=== PATIENT | female | born 1965 | race Asian ===

== ENCOUNTER 2016-09-09 22:09 | Emergency (ER) | payer OTHER ==
--- NOTE | ~2016-09-09 | HP ---
History And Physical [address] [place]. [address] NAME: SAM KEITA : 61 STATUS : ADM Jewel PAT#: [id number] AGE: 51 ADM/REG DATE : 09/09/16 MR#: [id number] REPORT SERV DATE: 09/10/16 DICTATED BY: LUIS BOWENS DATE: 09/10/16 REPORT STATUS : Draft TRANSCRIBED BY: MODL DATE: 09/10/16 DATE OF ADMISSION: 09/09/2016 REASON FOR ADMISSION: NSTEMI. HISTORY OF PRESENT ILLNESS: Ms. Keita is a very pleasant, 51-year-old, female with no past medical history, significant family history for heart disease (sister at 40 years of age with arrhythmia, nephew with arrhythmia, mother and father both with nonspecified heart disease) who presents to [facility] with complaints of left-sided chest discomfort that started yesterday. She states that she had been in her usual state of health up until yesterday morning when she awoke with left-sided chest pressures and discomfort. She ignored this through the morning, however, her symptoms became worse later in the day. They became associated with faintness as well as shortness of breath by late afternoon, prompting her to tell her that she needs to go get evaluated. They live in a community that has a physician health information clerk on Sundays, who they saw. Cardiac enzymes were checked by that physician which came back elevated. At that point in time, she was advised to come to [facility] ER for further evaluation and care. She was admitted for NSTEMI given a troponin of 0.17. ALLERGIES: NO KNOWN DRUG ALLERGIES. PAST MEDICAL HISTORY: None. FAMILY HISTORY: Significant for heart disease as detailed above. SOCIAL HISTORY: The [facility] with her . She functions independently under normal circumstances. She does not have any drug history, and denies smoking or drinking alcohol. REVIEW OF SYSTEMS: As above, all other systems otherwise negative. PHYSICAL EXAMINATION: VITAL SIGNS: Stable and within normal range, sinus bradycardia with a heart rate of 50s to 60s. Afebrile. GENERAL: Well developed, well nourished, no acute distress. NEURO: Awake, alert and oriented x3; no focal deficits, appropriate mood. HEENT: Moist mucous membranes, anicteric sclerae, no nasal discharge. NECK: No JVD, no carotid bruit. LUNGS: Clear to auscultation bilaterally, no wheezes, rales or rhonchi. CV: Regular rhythm, normal S1/S2, no murmurs, rubs or gallops. ABD: Soft, non-tender, non-distended, no rebound or guarding. EXT: No pitting edema, normal distal pulses. SKIN: Warm, dry and intact; no rash. PERTINENT TEST FINDINGS: Troponin 0.16 and 0.17. Otherwise labs are not remarkable. EKG History And Physical [address] [address] NAME: SAM KEITA : 61 STATUS : ADM Jewel PAT#: [id number] AGE: 51 ADM/REG DATE : 09/09/16 MR#: [id number] REPORT SERV DATE: 09/10/16 DICTATED BY: LUIS BOWENS DATE: 09/10/16 REPORT STATUS : Draft TRANSCRIBED BY: MODL DATE: 09/10/16 with sinus bradycardia, nonspecific ST/T-wave changes in lead III only. Otherwise normal EKG. IMPRESSION AND PLAN: Ms. Keita is a very pleasant, 51-year-old, female with a significant family history for heart disease who presents with chest pain in the setting of elevated troponins. Accordingly, I have the following plan by problem below: 1. Xde-ID-stjorhl elevation myocardial infarction-n.p.o. Pre-cath orders. Heparin drip. Scheduled for coronary angiography with possible PCI today. Risks and benefits of this procedure have been discussed and the patient is amenable with proceeding. Check an echocardiogram. 2. Sinus bradycardia-stable in the 60s, without any hypotension. We will not be able to start a beta-joseluis in light of this. 3. Family history is significant for heart disease-workup as per #1. VR/MODL Luis Bowens MD / [id number] CC: Nabil Conley M.D.
[2016-09-09 22:41] LABS: BASOPHILS 0.6 %; BASOPHILS ABSOLUTE 0.04 10/3/uL (0.0-0.16); EOSINOPHILS ABSOLUTE 0.27 10/3/uL (0.0-0.53); HEMOGLOBIN 14.3 g/dL (12.0-16.0); IMMATURE GRANULOCYTES 0.1 %; IMMATURE GRANULOCYTES ABSOLUTE 0.01 10/3/uL (0.0-0.11); LYMPHOCYTES 37.2 %; LYMPHOCYTES ABSOLUTE 2.51 10/3/uL (0.67-4.30); MEAN CORPUS HGB CONC 33.6 g/dL (32.0-36.0); MEAN CORPUSCULAR HEMOGLOB 30.5 pg (26.0-34.0); MEAN CORPUSCULAR VOLUME 90.6 fL (80-100); MEAN PLATELET VOLUME 10.9 fL (9.2-13.0); MONOCYTES 5.9 %; NEUTROPHILS 52.2 %; NEUTROPHILS ABSOLUTE 3.51 10/3/uL (2.02-8.40); PLATELET COUNT 199 10/3/uL (150-400); RBC DISTRIBUTION WIDTH 12.8 % (12.0-16.0); RED CELL COUNT 4.69 10/6/uL (4.0-5.6); WHITE BLOOD CELLS 6.7 10/3/uL (4.5-10.5)
[2016-09-09 22:42] LABS: HEMATOCRIT 42.5 % (36.0-48.0)
[2016-09-09 22:43] LABS: MANUAL DIFF NO %
[2016-09-09 22:47] LABS: PROTIME (NOT ORD) 12.6 SEC (12.0-14.5)
[2016-09-09 22:48] LABS: PARTIAL THROMBO TIME 32.1 SEC (22.5-37.2)
[2016-09-09 22:59] LABS: BUN (BLOOD UREA NITROGEN) 8 MG/DL (6-23); CALCIUM, SERUM 8.9 MG/DL (8.5-10.4); CHLORIDE, SERUM 106 MMOL/L (96-112); CO2 (CARBON DIOXIDE) 28 MMOL/L (24-34); CREATININE 0.78 MG/DL (0.55-1.02); GFR AFRICAN AMERICAN 101 ML/MIN (>=60); GFR NON AFRICAN AMERICAN 87 ML/MIN (>=60); GLUCOSE, SERUM 107 MG/DL (60-99); SODIUM, SERUM 144 MMOL/L (135-148)
[2016-09-09 23:00] LABS: CHEST PAIN PROFILE TAT 0 Hrs 23 Mins; POTASSIUM, SERUM 3.5 MMOL/L (3.5-5.3); TROPONIN I 0.17 NG/ML (<0.05)
[2016-09-09] MEDS ORDERED: *DENIES (23:18)
[2016-09-10 05:43] LABS: TROPONIN I 0.16 NG/ML (<0.05)
[2016-09-10 06:37] LABS: PARTIAL THROMBO TIME 149.3 SEC (22.5-37.2)
[2016-09-10 09:30] LABS: BASOPHILS 0.3 %; BASOPHILS ABSOLUTE 0.02 10/3/uL (0.0-0.16); EOSINOPHILS 1.3 %; EOSINOPHILS ABSOLUTE 0.08 10/3/uL (0.0-0.53); HEMATOCRIT 41.1 % (36.0-48.0); HEMOGLOBIN 13.7 g/dL (12.0-16.0); LYMPHOCYTES 31.6 %; LYMPHOCYTES ABSOLUTE 1.89 10/3/uL (0.67-4.30); MEAN CORPUS HGB CONC 33.3 g/dL (32.0-36.0); MEAN CORPUSCULAR HEMOGLOB 30.2 pg (26.0-34.0); MEAN CORPUSCULAR VOLUME 90.5 fL (80-100); MEAN PLATELET VOLUME 11.1 fL (9.2-13.0); NEUTROPHILS 61.8 %; NEUTROPHILS ABSOLUTE 3.69 10/3/uL (2.02-8.40); PLATELET COUNT 199 10/3/uL (150-400); RBC DISTRIBUTION WIDTH 12.8 % (12.0-16.0); RED CELL COUNT 4.54 10/6/uL (4.0-5.6)
[2016-09-10 09:31] LABS: MANUAL DIFF NO %
[2016-09-10 09:40] LABS: INTERNATIONAL NORMAL RATI 1.1 UNITS (-)
[2016-09-10 09:46] LABS: BUN (BLOOD UREA NITROGEN) 6 MG/DL (6-23); CALCIUM, SERUM 9.5 MG/DL (8.5-10.4); CHLORIDE, SERUM 111 MMOL/L (96-112); CHOL/HDL RATIO(NOT ORDER) 3.1 (0-5); CHOLESTEROL 207 MG/DL (< 200); CO2 (CARBON DIOXIDE) 25 MMOL/L (24-34); CREATININE 0.74 MG/DL (0.55-1.02); GFR AFRICAN AMERICAN 107 ML/MIN (>=60); GFR NON AFRICAN AMERICAN 92 ML/MIN (>=60); GLUCOSE, SERUM 106 MG/DL (60-99); HDL CHOLESTEROL 67 MG/DL (> 49); LDL CHOLESTEROL 127 MG/DL (< 130); NON-HDL CHOLESTEROL 140 MG/DL (< 160); POTASSIUM, SERUM 3.9 MMOL/L (3.5-5.3); SODIUM, SERUM 145 MMOL/L (135-148); TRIGLYCERIDE 68 MG/DL (< 150)
[2016-09-10] MEDS ORDERED: ASAB PO (15:54)
[2016-09-10] MEDS ORDERED: LIPITOR40 (15:55)
== END 2016-09-10 18:30 | disposition home or self-care (01) ==
LOC: ER 22:09
PROVIDERS: Hospitalist; Internal Medicine Cardiovascular Disease; Student in an Organized Health Care Education/Training Program
PROC: B206YZZ Plain Radiography of Right and Left Heart using Other Contrast (ICD-10-PCS; principal; 2016-09-09)
DX: I21.4 Non-ST elevation (NSTEMI) myocardial infarction (principal); R00.1 Bradycardia, unspecified; I25.10 Atherosclerotic heart disease of native coronary artery without angina pectoris; K21.9 Gastro-esophageal reflux disease without esophagitis; Z98.890 Other specified postprocedural states; Z88.8 Allergy status to other drugs, medicaments and biological substances
CPT/HCPCS: 71020; 80048; 80061; 83735; 84484; 84703; 85025; 85610; 85730; 93005; 93458; 99152; 99285; A9270-GY; C1769; C1887; C1894; J2250; J3010; Q9967

== ENCOUNTER 2016-09-13 03:32 | Emergency (ER) | payer OTHER ==
[2016-09-13 02:33] LABS: BASOPHILS 0.4 %; BASOPHILS ABSOLUTE 0.04 10/3/uL (0.0-0.16); EOSINOPHILS 3.7 %; EOSINOPHILS ABSOLUTE 0.34 10/3/uL (0.0-0.53); HEMATOCRIT 43.8 % (36.0-48.0); HEMOGLOBIN 14.7 g/dL (12.0-16.0); IMMATURE GRANULOCYTES 0.1 %; IMMATURE GRANULOCYTES ABSOLUTE 0.01 10/3/uL (0.0-0.11); LYMPHOCYTES 38.5 %; LYMPHOCYTES ABSOLUTE 3.53 10/3/uL (0.67-4.30); MEAN CORPUS HGB CONC 33.6 g/dL (32.0-36.0); MEAN CORPUSCULAR HEMOGLOB 30.3 pg (26.0-34.0); MEAN CORPUSCULAR VOLUME 90.3 fL (80-100); MEAN PLATELET VOLUME 11.9 fL (9.2-13.0); MONOCYTES 7.1 %; MONOCYTES ABSOLUTE 0.65 10/3/uL (0.21-1.20); NEUTROPHILS 50.2 %; NEUTROPHILS ABSOLUTE 4.61 10/3/uL (2.02-8.40); PLATELET COUNT 182 10/3/uL (150-400); RBC DISTRIBUTION WIDTH 12.8 % (12.0-16.0); RED CELL COUNT 4.85 10/6/uL (4.0-5.6)
[2016-09-13 02:35] LABS: MANUAL DIFF NO %; WHITE BLOOD CELLS 9.2 10/3/uL (4.5-10.5)
[2016-09-13 02:48] LABS: PARTIAL THROMBO TIME 31.9 SEC (22.5-37.2); PROTIME (NOT ORD) 12.9 SEC (12.0-14.5)
[2016-09-13 02:58] LABS: ALBUMIN 4.4 G/DL (3.5-5.0); BUN (BLOOD UREA NITROGEN) 9 MG/DL (6-23); CALCIUM, SERUM 9.4 MG/DL (8.5-10.4); CHLORIDE, SERUM 102 MMOL/L (96-112); CO2 (CARBON DIOXIDE) 27 MMOL/L (24-34); CREATININE 0.83 MG/DL (0.55-1.02); GFR AFRICAN AMERICAN 93 ML/MIN (>=60); GFR NON AFRICAN AMERICAN 81 ML/MIN (>=60); GLUCOSE, SERUM 103 MG/DL (60-99); POTASSIUM, SERUM 3.4 MMOL/L (3.5-5.3); SGOT(AST) 20 U/L (5-40); SGPT(ALT) 28 U/L (5-65); SODIUM, SERUM 140 MMOL/L (135-148); TOTAL BILIRUBIN 0.5 MG/DL (0-1.2)
[2016-09-13 02:59] LABS: ALKALINE PHOSPHATASE 70 U/L (45-117); DIRECT BILIRUBIN < 0.1 MG/DL (0.0-0.4); INDIRECT BILIRUBIN(NOT ORDER) 0.4 MG/DL (0.1-0.9); TOTAL PROTEIN 8.7 G/DL (6.0-8.5)
[2016-09-13 03:00] LABS: CHEST PAIN PROFILE TAT 0 Hrs 31 Mins; TROPONIN I 0.21 NG/ML (<0.05)
[2016-09-13 03:18] LABS: D-DIMER QUANTITATIVE 0.34 ug/mLFEU (< 0.50)
[~2016-09-13 03:32] MED LIST: *DENIES; ASAB PO; LIPITOR40
== END 2016-09-13 06:04 | disposition home or self-care (01) ==
LOC: ER 03:32
PROVIDERS: Specialist
DX: R00.2 Palpitations (principal); R79.89 Other specified abnormal findings of blood chemistry; E87.6 Hypokalemia; Z88.8 Allergy status to other drugs, medicaments and biological substances; Z79.82 Long term (current) use of aspirin; Z79.899 Other long term (current) drug therapy
CPT/HCPCS: 71010; 80048; 80076; 83690; 83735; 84484; 85025; 85379; 85610; 85730; 93005; 93225; 99285; A9270-GY

== ENCOUNTER 2016-09-20 23:00 | Observation (INO) | payer OTHER ==
--- NOTE | ~2016-09-20 | HP ---
History And Physical [address] [place]. [address] NAME: SAM AVILES : 61 STATUS : DIS Jewel PAT#: [id number] AGE: 51 ADM/REG DATE : 09/20/16 MR#: [id number] REPORT SERV DATE: 09/26/16 DICTATED BY: ADONIS RAUSCH DATE: 09/26/16 REPORT STATUS : Draft TRANSCRIBED BY: MODL DATE: 09/26/16 DATE OF ADMISSION: 09/20/2016 PRIMARY CARE PROVIDER: Dr. Jed Tam. WARP HAULER: Dr. Luis Valdez. CHIEF COMPLAINT: Chest pain. HISTORY OF PRESENT ILLNESS: A very pleasant, 51-year-old, Telugu female with mild-to- moderate heart disease identified by cath on 09/10/[address] Naylor with proximal RCA 40% lesion. The patient states that she was at rest on 09/20/2016, around 2000 hours after a dinner of papaya and bread, she was sitting on her couch and she developed some chest tightness. She reports feeling faint, shaky, and cold. She reports associated shortness of breath, nausea, diaphoresis, and dizziness. Denies any belching with the incident. The chest pain did not radiate elsewhere. At its most intense, she rated it at 6/10. At the time of interview in the [facility], she rates the chest pain at 2/10. Her symptoms were improved with potassium repletion. The patient resides at [facility] and was seen in their clinic. She was provided nitropaste, aspirin, and magnesium with no improvement in her symptoms. She denies any personal history of myocardial infarction, stroke, DVT, or pulmonary embolus. Of note, the patient does have a followup appointment with Dr. Valdez today at 1330 hours, possibly to discuss Holter results and followup after cath. The patient denies any fever or chills. No palpitations. No syncopal episodes. Denies PND or orthopnea. PAST MEDICAL HISTORY: 1. Nonobstructive CAD. 2. Dyslipidemia. 3. Denies hypertension and diabetes. PAST SURGICAL HISTORY: 1. A cyst from breast (benign). 2. Appendectomy. 3. Hiatal hernia repair. SOCIAL HISTORY: She is with two children. She does not work outside the home. She does not exercise. Denies tobacco, alcohol, or illicits. FAMILY HISTORY: Father with "weak heart," alive at 84. A sister with Itqsi-Rdjtvxwqe-[id number]. REVIEW OF SYSTEMS: A 14-point review of systems performed, significant for HPI including home systolic blood pressure of 110. Otherwise, complete review of systems obtained and negative. History And Physical [address] [address] NAME: SAM AVILES : 61 STATUS : DIS Jewel PAT#: [id number] AGE: 51 ADM/REG DATE : 09/20/16 MR#: [id number] REPORT SERV DATE: 09/26/16 DICTATED BY: ADONIS RAUSCH DATE: 09/26/16 REPORT STATUS : Draft TRANSCRIBED BY: PATRICIA DATE: 09/26/16 HOME MEDICATIONS: Aspirin 81 mg daily, Lipitor 40 mg daily (not yet started), maximum D3 49995 units daily, CoQ10 daily, magnesium daily. PHYSICAL EXAMINATION: VITAL SIGNS: Blood pressure 128/82, pulse 56, respirations 16, temperature 97.5, O2 saturation 97% on room air. GENERAL: Cooperative, in no apparent distress. HEENT: Pupils 2 mm, sclera nonicteric. Nares patent. Moist mucous membranes. No xanthelasma. NECK: Trachea midline. No thyromegaly. No JVD. No bruits. LYMPH: No cervical lymphadenopathy. No supraclavicular lymphadenopathy. RESPIRATORY: Unlabored respirations. Breath sounds clear bilaterally to posterior auscultation. No wheezes or rhonchi. CARDIOVASCULAR: Regular rate. No murmur, rub or gallop appreciated. Extremities without edema. Pulses 2+ bilaterally. ABDOMEN: Soft, nontender, nondistended, normal bowel sounds auscultated throughout. No organomegaly. SKIN: Warm, dry extremities. No pallor, or cyanosis. PSYCHIATRIC: Appropriate affect. Alert and oriented x3. LABORATORY DATA: Troponin 0.18, 0.18, and 0.22 (baseline troponin 0.16 to 0.21 precatheterization). Potassium of 3.3, BUN 4, creatinine 0.81, glucose 96, magnesium 2.5. WBC 6.4, hemoglobin 14.2, hematocrit 41.5, platelets 197,000. D-dimer 0.34. EKG, sinus bradycardia. Echo, 09/2016: EF 55%. Cath, 09/10/2016 (Negus): Mild CAD without severe stenosis. EF 60%. Proximal RCA 40% lesion. Holter 09/18/2016: 89 beats per minute. Single PACs. Few short runs of SVT. No atrial fibrillation. ASSESSMENT AND PLAN: 1. Atypical chest pain with known nonobstructive disease by catheterization recently. The patient will be held n.p.o. for now. We will discuss with rounding physician. Would consider discharge home as the patient has a Cardiology followup today. 2. Shortness of breath. D-dimer 0.34. Symptoms and history are not suggestive of pulmonary embolism or any thoracic abnormality. 3. Nonobstructive CAD. Aspirin and Lipitor not yet begun. The patient to follow up with Dr. Valdez today to discuss the cath findings and most likely recent Holter monitor. We will try to get this patient discharged home so that she can make that appointment. JEROD/PATRICIA History And Physical [address] [address] NAME: SAM AVILES : 61 STATUS : DIS Jewel PAT#: [id number] AGE: 51 ADM/REG DATE : 09/20/16 MR#: [id number] REPORT SERV DATE: 09/26/16 DICTATED BY: ADONIS RAUSCH DATE: 09/26/16 REPORT STATUS : Draft TRANSCRIBED BY: PATRICIA DATE: 09/26/16 JOSH Cheng, TECHNICAL EXPERT-BC / [id number] CC: JOSH Cheng, TECHNICAL EXPERT-BC
[2016-09-20 23:39] LABS: BASOPHILS 0.6 %; BASOPHILS ABSOLUTE 0.04 10/3/uL (0.0-0.16); EOSINOPHILS 4.2 %; EOSINOPHILS ABSOLUTE 0.27 10/3/uL (0.0-0.53); HEMATOCRIT 41.5 % (36.0-48.0); HEMOGLOBIN 14.2 g/dL (12.0-16.0); IMMATURE GRANULOCYTES 0.2 %; IMMATURE GRANULOCYTES ABSOLUTE 0.01 10/3/uL (0.0-0.11); LYMPHOCYTES ABSOLUTE 1.99 10/3/uL (0.67-4.30); MANUAL DIFF NO %; MEAN CORPUS HGB CONC 34.2 g/dL (32.0-36.0); MEAN CORPUSCULAR HEMOGLOB 30.4 pg (26.0-34.0); MEAN CORPUSCULAR VOLUME 88.9 fL (80-100); MEAN PLATELET VOLUME 11.8 fL (9.2-13.0); MONOCYTES 7.3 %; MONOCYTES ABSOLUTE 0.47 10/3/uL (0.21-1.20); NEUTROPHILS 56.7 %; NEUTROPHILS ABSOLUTE 3.63 10/3/uL (2.02-8.40); PLATELET COUNT 197 10/3/uL (150-400); RBC DISTRIBUTION WIDTH 12.5 % (12.0-16.0); RED CELL COUNT 4.67 10/6/uL (4.0-5.6); WHITE BLOOD CELLS 6.4 10/3/uL (4.5-10.5)
[2016-09-20 23:46] LABS: PARTIAL THROMBO TIME 33.3 SEC (22.5-37.2); PROTIME (NOT ORD) 13.2 SEC (12.0-14.5)
[2016-09-20 23:55] LABS: ALBUMIN 4.3 G/DL (3.5-5.0); ALKALINE PHOSPHATASE 69 U/L (45-117); CALCIUM, SERUM 9.1 MG/DL (8.5-10.4); CHLORIDE, SERUM 104 MMOL/L (96-112); CO2 (CARBON DIOXIDE) 25 MMOL/L (24-34); CREATININE 0.81 MG/DL (0.55-1.02); GFR AFRICAN AMERICAN 96 ML/MIN (>=60); GFR NON AFRICAN AMERICAN 83 ML/MIN (>=60); GLUCOSE, SERUM 96 MG/DL (60-99); POTASSIUM, SERUM 3.3 MMOL/L (3.5-5.3); SGOT(AST) 25 U/L (5-40); SGPT(ALT) 34 U/L (5-65); SODIUM, SERUM 140 MMOL/L (135-148); TOTAL BILIRUBIN 0.4 MG/DL (0-1.2); TOTAL PROTEIN 8.3 G/DL (6.0-8.5)
[2016-09-20 23:57] LABS: BUN (BLOOD UREA NITROGEN) 4 MG/DL (6-23); DIRECT BILIRUBIN < 0.1 MG/DL (0.0-0.4); INDIRECT BILIRUBIN(NOT ORDER) 0.3 MG/DL (0.1-0.9)
[2016-09-20 23:58] LABS: CHEST PAIN PROFILE TAT 0 Hrs 25 Mins; TROPONIN I 0.18 NG/ML (<0.05)
[2016-09-21] MEDS ORDERED: LIPITOR40 PO (00:57)
[2016-09-21] MEDS ORDERED: ASAB PO (00:57)
[2016-09-21] MEDS ORDERED: CO Q-10 OTC PO (00:59)
[2016-09-21] MEDS ORDERED: MAXIMUM D3 PO (00:59)
[2016-09-21] MEDS ORDERED: MAGNESIUM OTC PO (01:00)
[2016-09-21] MEDS ORDERED: NTG150 SL (11:19)
[2016-09-21] MEDS ORDERED: CARD30 PO (11:21)
== END 2016-09-21 12:40 | disposition home or self-care (01) ==
LOC: ER 23:00 → CDU1 23:59
PROVIDERS: Emergency Medicine
DX: R07.89 Other chest pain (principal); R06.02 Shortness of breath; I25.10 Atherosclerotic heart disease of native coronary artery without angina pectoris; Z90.49 Acquired absence of other specified parts of digestive tract; Z98.890 Other specified postprocedural states
CPT/HCPCS: 71010; 80048; 80076; 83690; 83735; 84484; 85025; 85610; 85730; 93005; 99285; A9270-GY; G0378